=== PATIENT | male | born 1990 | race Caucasian/White ===

== ENCOUNTER 2024-10-03 07:34 | Emergency (ER) | payer OTHER ==
[~2024-10-03] VITALS: Ht 182.9 cm; Wt 90.0 kg
[2024-10-03 07:35] VITALS: O2SAT 100
[2024-10-03] MEDS: FAMOTIDINE 20MG TABLET PO ONE (08:00)
[2024-10-03] MEDS: SODIUM CHLORIDE 0.9% 1,000 ML IV ONE ×2 (08:00→08:43)
[2024-10-03] MEDS: ONDANSETRON HCL 4MG/2ML INJ IV ONE (08:00)
[2024-10-03] MEDS: HALOPERIDOL LACTATE 5MG/ML VIAL IM ONE (08:00)
[2024-10-03] MEDS: MORPHINE SULFATE 4 MG/ML INJ (FOR IV/IM USE) IV ONE (08:42)
[2024-10-03 08:54] LABS: BASOPHILS % 0.1 % (0.0-2.0); EOSINOPHILS % 0.0 % (0.0-5.0); HEMATOCRIT. 41.9 % (42.0-52.0); HEMOGLOBIN. 14.2 g/dL (14.0-18.0); LYMPHOCYTES % 8.5 % (20.0-50.0); MEAN PLATELET VOLUME 7.8 fl (7.4-10.4); MONOCYTES % 1.9 % (2.0-8.0); NEUTROPHILS % 89.5 % (40.0-76.0); PLATELET 289 x1000/uL (130-400); RED BLOOD CELL COUNT 4.70 mill/uL (4.7-6.1); RED CELL DISTRIBUTION WIDTH 13.6 % (11.6-14.6)
[2024-10-03 09:09] LABS: CREATININE 0.9 mg/dL (0.6-1.3)
[2024-10-03 09:10] LABS: UREA NITROGEN BLOOD 16 mg/dL (9-23)
[2024-10-03 09:11] LABS: ASPARTATE AMINOTRANSFERASE 20 IU/L (<34)
[2024-10-03 09:12] LABS: BILIRUBIN DIRECT 0.2 mg/dL (<=3.0); BILIRUBIN TOTAL 0.5 mg/dL (0.1-1.0)
[2024-10-03 09:13] LABS: PROTEIN TOTAL 7.2 g/dL (6.0-8.3)
[2024-10-03] MEDS ORDERED: ONDA4TAB50 MT (10:26)
[2024-10-03 10:44] VITALS: BP 123/88; PULSE 90; RESP 14; TEMP 36.7; O2SAT 100
== END 2024-10-03 10:45 | disposition home or self-care (01) ==
LOC: ER 07:51
DX: R11.2 Nausea with vomiting, unspecified (principal); F12.90 Cannabis use, unspecified, uncomplicated
CPT/HCPCS: 80076; 80048; 83690; 85025; 36415; 96361; 96372; 96374; 96375; 99285; J1630; J2405; J2270; J7030; Z7610 ×2